=== PATIENT | male | born 1935 | race Caucasian/White ===

== ENCOUNTER 2020-04-20 06:02 | Day surgery (SDC) | payer MEDICARE, OTHER ==
[~2020-04-20] VITALS: Ht 175.3 cm; Wt 62.2 kg
[2020-04-20 06:43] VITALS: BP 144/74; PULSE 71; TEMP 97.9
[2020-04-20] MEDS ORDERED: XALATAN EYE DROPS OU (06:53)
[2020-04-20] MEDS ORDERED: CARTEOLOL 1% OU (06:54)
[2020-04-20] MEDS ORDERED: ASPIRIN E.C. 8181 MG PO (06:54)
[2020-04-20] MEDS ORDERED: [UNRECOGNIZED DRUG - OTHER] OU (06:54)
[2020-04-20] MEDS ORDERED: SYSTANE 0.4%-0.1 SOL OU (06:55)
[2020-04-20] MEDS ORDERED: PYRIDIUM 100MG100 MG PO (07:33)
[2020-04-20] MEDS ORDERED: NORCO 325 MG-51 TAB PO (07:34)
[2020-04-20 08:50] VITALS: BP 167/85; PULSE 84; TEMP 97.2
--- NOTE | 2020-04-20 08:50 | NUR ---
TO RM 6 PER CART FROM PACU. ALERT ORIENTED X3, TALKING TO STAFF AND HIS SISTER. AMBULATED TO BATHROOM WITH ASSIST. VOIDED AND AMBULATED BACK TO ROOM WITH ASSIST. RECEIVED WATER AND CRACKERS
[2020-04-20 08:59] VITALS: TEMP 97.2
[2020-04-20 09:05] VITALS: BP 149/75; PULSE 91
--- NOTE | 2020-04-20 09:05 | NUR ---
AMBULATED TO BATHROOM WITH ASSIST. VOIDED 2ND TIME AND AMBULATED BACK TO . ATE 100% CRACKERS AND WATER.
[2020-04-20 09:20] VITALS: BP 147/76; PULSE 90
--- NOTE | 2020-04-20 09:20 | NUR ---
RECEIVED APPLE JUICE AND MUFFIN.
--- NOTE | 2020-04-20 09:30 | NUR ---
AMBULATED TO WITH ASSIST TO AND FROM BATHROOM. VOIDED LIGHT YELLOW URINE WITH 1 SMALL BLOOD CLOT. DENIES PAIN OR DISCOMFORT AT CURRENT TIME. DENIES NAUSEA
--- NOTE | 2020-04-20 09:50 | NUR ---
ATE 100% AND TOLERATED WELL. RECEIVED DISCHARGE INSTRUCTIONS AND VERBALIZED UNDERSTANDING. DISCONTINUED IV AND INT- CATHETER INTACT 1/[address] GETTING DRESSED TO GO HOME. PATIENT HAD TO USE THE URINAL. VOIDED ANOTHER 150CC CLEAR LIGHT YELLOW URINE WITH A TINGE OF PINK. AFTER GETTING DRESSED PATIENT WANTED TO REST BEFORE GOING HOME.
--- NOTE | 2020-04-20 10:10 | NUR ---
DISCHARGED PER WC BY NURSING STAFF TO PRIVATE CAR IN CARE OF MARGOTH ORTIZ
== END 2020-04-20 12:15 | disposition home or self-care (01) ==
LOC: SDCO 06:02
DX: N20.1 Calculus of ureter (principal); Z88.5 Allergy status to narcotic agent; Z88.4 Allergy status to anesthetic agent; Z80.0 Family history of malignant neoplasm of digestive organs; Z83.3 Family history of diabetes mellitus; Z79.82 Long term (current) use of aspirin; M19.90 Unspecified osteoarthritis, unspecified site; Z85.828 Personal history of other malignant neoplasm of skin
CPT/HCPCS: J0690; J1100; J1885; J1940; J2405; J2704; J3010; J7120; Q9967